=== PATIENT | female | born 1950 | race Caucasian/White ===

== ENCOUNTER → 2017-05-26 | Outpatient (CLI) | payer OTHER ==
[~2017-05-26] VITALS: Ht 152.4 cm; Wt 74.4 kg
[~2017-05-26] MED LIST: CALTRATE 600 +1 EAC1 PO; CYMBALTA60 MG PO; DIOVAN160 MG PO; FOLIC ACID1 MG PO; LYRICA100 MG PO; LYRICA50 MG PO; MIRAPEX0.125 MG PO; OMEGA-31000 M1 PO; PLAVIX75 MG PO; PRILOSEC OTC20 MG PO; SINGULAIR10 MG PO; TRICOR145 MG PO; ULTRAM ER200 MG PO; ZETIA10 MG PO
== END | disposition home or self-care (01) ==
LOC: AMB 09:49
DX: Z12.11 Encounter for screening for malignant neoplasm of colon (principal); K29.60 Other gastritis without bleeding; Z86.010 Personal history of colon polyps; I10 Essential (primary) hypertension; K21.9 Gastro-esophageal reflux disease without esophagitis; J45.909 Unspecified asthma, uncomplicated; Z86.73 Personal history of transient ischemic attack (TIA), and cerebral infarction without residual deficits; Z79.02 Long term (current) use of antithrombotics/antiplatelets
CPT/HCPCS: 43239; G0105; 88305; 88342 TC; J2250; J3010